=== PATIENT | female | born 1950 | race Caucasian/White ===

== ENCOUNTER → 2016-09-24 | Outpatient (REF) | payer MEDICARE, OTHER ==
[2016-09-24 15:23] LABS: BASO % 0.3 % (0.0-1.0); EOS # 0.1 K/mm3 (0.0-0.50); EOS % 1.3 % (0.0-3.0); LARGE UNSTAINED CELL # 0.1 K/mm3 (0.0-0.4); LARGE UNSTAINED CELL % 1.5 % (0.0-4.0); LYMPH # 1.8 K/mm3 (1.5-4.5); LYMPH % 25.4 % (24.0-44.0); MEAN CORPUSCULAR HEMOGLOBIN 33.5 pg (27.0-33.0); MEAN CORPUSCULAR HGB CONC 33.7 g/dl (32.0-36.5); MEAN CORPUSCULAR VOLUME 99.4 fl (80.0-96.0); MONO # 0.4 K/mm3 (0.0-0.8); MONO % 5.1 % (0.0-5.0); NEUTROPHILS # 4.5 K/mm3 (1.8-7.7); NEUTROPHILS % 66.4 % (36.0-66.0); PLATELET COUNT, AUTOMATED 392 k/mm3 (150-450); RED CELL DISTRIBUTION WIDTH 12.1 % (11.5-14.5); WHITE BLOOD COUNT 6.8 K/mm3 (4.0-10.0)
[2016-09-24 15:25] LABS: INR 0.89
[2016-09-24 16:01] LABS: ALBUMIN 3.9 GM/DL (3.2-5.2); ALBUMIN/GLOBULIN RATIO 1.26 (1.00-1.93); ALKALINE PHOSPHATASE 133 U/L (45-117); ALT/SGPT 29 U/L (12-78); ANION GAP 9 MEQ/L (8-16); AST/SGOT 31 U/L (15-37); BILIRUBIN,TOTAL 0.4 MG/DL (0.2-1.0); BLOOD UREA NITROGEN 11 MG/DL (7-18); CALCIUM LEVEL 9.6 MG/DL (8.8-10.2); CARBON DIOXIDE LEVEL 31 MEQ/L (21-32); CHLORIDE LEVEL 92 MEQ/L (98-107); CHOLESTEROL LEVEL 205 MG/DL (<200); CREATININE FOR GFR 0.49 MG/DL (0.55-1.02); GLOMERULAR FILTRATION RATE > 60.0 (>45); GLUCOSE, FASTING 97 MG/DL (80-110); POTASSIUM SERUM 3.9 MEQ/L (3.5-5.1); SODIUM LEVEL 132 MEQ/L (136-145); TRIGLYCERIDES LEVEL 49 MG/DL (<150)
== END | disposition home or self-care (01) ==
LOC: M SFHCLACO 12:20
PROVIDERS: ATTEND Physician Assistant
DX: R07.89 Other chest pain (principal); R05 Cough; R23.8 Other skin changes; I10 Essential (primary) hypertension; E78.2 Mixed hyperlipidemia; E55.9 Vitamin D deficiency, unspecified; F17.200 Nicotine dependence, unspecified, uncomplicated
CPT/HCPCS: 36415; 80053; 80061; 82306; 85025; 85610; 85730; 93005; G0463

== ENCOUNTER → 2016-09-25 | Outpatient (CLI) | payer MEDICARE, BC, OTHER ==
[~2016-09-25] MED LIST: ISOVUE-370 76% 100ML VIAL (Q9967) As Ordered ONE
--- NOTE | 2016-09-25 09:25 | REP ---
CT chest with IV contrast: History: Abnormal chest x-ray September 24, 2015. CT contrast dose: 75 ml of Isovue [address] findings: CT study confirms a large right paratracheal mediastinal mass. This envelops the superior vena cava and produces moderate to marked superior vena caval narrowing. Collateral venous pathways are opacified by the left upper extremity contrast injection. These venous collaterals are seen along the left contour of the mediastinum into the left upper abdomen. The azygos vein is also narrowed or occluded by the tumor. There is some heterogeneous enhancement within the mediastinal mass. The mass abuts the right lateral wall of the trachea and there is a subtle nodular indentation of the right lateral wall of the trachea just above the bifurcation. This mass measures 7.2 cm in craniocaudal span by 7.0 cm anterior to posterior by 5.4 cm medial to lateral. There is a mildly enlarged subcarinal lymph node measuring 1.6 x 0.9 cm. A right superior hilar lymph node is seen measuring 1.1 cm in short axis dimension. There is also a mass in the inferior hilus which could be roseanne or parenchymal. This measures 2.1 x 2.0 cm. The right hemidiaphragm is somewhat elevated and there is mild plate-like atelectasis in the right lower lobe posteriorly. There are mild to moderate emphysematous changes in the upper lobes bilaterally. There are scattered areas of pleural plaquing and small subcentimeter pulmonary nodular changes are seen in the right lower lobe, left upper lobe, and left lower lobe. The largest of these is in the left lower lobe measuring 0.6 cm. There is a centrally calcified granuloma in the right lower lobe which measures 0.7 cm. No visible adrenal mass is seen. There is an ill-defined low density area in the anterior aspect of the liver above and adjacent to the falciform ligament. This may be fatty infiltration. No definite mass lesion is seen. No bony destructive lesion is appreciated. Impression: Findings compatible with bronchogenic malignancy with right inferior hilar lower lobe mass and a bulky right mediastinal mass producing high-grade narrowing of the superior vena cava with some collateral venous flow along the mediastinum. There is subcarinal adenopathy. Recommend PET/CT scanning and histologic sampling. Signed by Brandon Terry MD 09/25/2016 02:59 P
== END | disposition home or self-care (01) ==
LOC: M RAD 07:41
PROVIDERS: ATTEND Physician Assistant
DX: R93.8 Abnormal findings on diagnostic imaging of other specified body structures (principal); R91.8 Other nonspecific abnormal finding of lung field; R59.9 Enlarged lymph nodes, unspecified
CPT/HCPCS: 71260; Q9967